=== PATIENT | male | born 1985 | race Caucasian/White ===

== ENCOUNTER 2019-04-02 21:35 | Emergency (ER) | payer BC, OTHER ==
[2019-04-02] MEDS ORDERED: cefTRIAXone VIAL(*) 250 MG VIAL IM ONE (22:20)
[2019-04-02] MEDS ORDERED: Lidocaine 1% MPF ** 5 ML VIAL IM ONE (22:20)
[2019-04-02] MEDS ORDERED: Azithromycin TAB* 250 MG PO ONE (22:22)
--- NOTE | 2019-04-02 22:34 | UC ---
Complaint Male HPI - HPI Summary HPI Summary: 33 year old male presents with penile discharge after unprotected sex within the past week. He states he was with two different partners. +dysuria no flank pain nor fever - History of Current Complaint Chief Complaint: UCGU Stated Complaint: COLD SXS Time Seen by Provider: 04/02/19 22:00 Hx Obtained From: Patient Onset/Duration: Sudden Onset - today Pain Intensity: 0 Location: Penis - discharge Character: Burning Aggravating Factor(s): Voiding Associated Signs And Symptoms: Positive: Negative Prior STD Hx: yes - Risk Factors Testicular Torsion: Negative - Allergies/Home Medications Allergies/Adverse Reactions: Allergies Allergy/AdvReac Type Severity Reaction Status Date / Time erythromycin base Allergy Unknown Verified 04/02/19 22:05 [From Pediazole] Reaction Details loratadine Allergy Unknown Verified 04/02/19 22:05 Reaction Details Penicillins Allergy Itching Verified 04/02/19 22:05 Sulfa (Sulfonamide Allergy Unknown Verified 04/02/19 22:05 Antibiotics) Reaction Details sulfisoxazole Allergy Unknown Verified 04/02/19 22:05 [From Pediazole] Reaction Details CITROCEL Allergy Unknown Unknown Uncoded 07/01/12 22:22 Reaction Details PMH/Surg Hx/FS Hx/Imm Hx Previously Healthy: Yes - Surgical History Surgical History: Yes Surgery Procedure, Year, and Place: LEFT KNEE ACL,MCL,MINISCUS.SST FUSIONS LEFT AND RIGHT WRIST - Family History Known Family History: Positive: Non-Contributory - Social History Alcohol Use: None Substance Use Type: None Smoking Status (MU): Never Smoked Tobacco Review of Systems All Other Systems Reviewed And Are Negative: Yes Constitutional: Positive: Negative Skin: Positive: Negative Eyes: Positive: Negative ENT: Positive: Negative Respiratory: Positive: Negative Cardiovascular: Positive: Negative Gastrointestinal: Positive: Negative Genitourinary: Positive: Dysuria, Other - penile discharge Neurovascular: Positive: Negative Musculoskeletal: Positive: Negative Neurological: Positive: Negative Psychological: Positive: Negative Is Patient Immunocompromised?: No Physical Exam Triage Information Reviewed: Yes Appearance: Well-Appearing Vital Signs: Initial Vital Signs Temp 97.4 F 04/02/19 21:53 Pulse 56 04/02/19 21:53 Resp 16 04/02/19 21:53 BP 125/77 04/02/19 21:53 Pulse Ox 100 08/02/19 21:53 Vital Signs Reviewed: Yes Eye Exam: Normal Eyes: Positive: Conjunctiva Clear ENT: Positive: Normal ENT inspection Neck: Positive: Supple, Nontender, No Lymphadenopathy Respiratory: Positive: Lungs clear Cardiovascular: Positive: RRR, No Murmur Abdomen Description: Positive: Nontender, Soft Male Genital Exam: Positive: Urethral Discharge - purulent. Negative: Lesions Musculoskeletal Exam: Normal Neurological Exam: Normal Skin Exam: Normal Complaint Male Course/Dx - Course Course Of Treatment: States he has tolerated rocephin and azithromycin in the past when treated. Rocephin 250mg IM and azithromycin 1000mg po given once here at Urgent Care. - Differential Dx/Diagnosis Provider Diagnosis: Sexually transmitted disease (STD) Discharge - Sign-Out/Discharge Documenting (check all that apply): Patient Departure All imaging exams completed and their final reports reviewed: No Studies - Discharge Plan Condition: Stable Disposition: HOME Patient Education Materials: Sexually Transmitted Diseases (ED) Referrals: No Primary Care Phys,NOPCP [Primary Care Provider] - Additional Instructions: It is important to notify all your sexual partners that you are being treated for a sexually transmitted disease. No sex for at least one week after treatment. Condom use and safe sexual practices are strongly recommended. - Billing Disposition and Condition Condition: STABLE Disposition: Home
[2019-04-05 14:07] LABS: Neisseria gonorrhoeae (GC) RNA Positive (Negative)
== END 2019-04-02 22:53 | disposition home or self-care (01) ==
LOC: UCCORT 21:35
DX: A64 Unspecified sexually transmitted disease (principal); Z88.0 Allergy status to penicillin; Z88.1 Allergy status to other antibiotic agents
CPT/HCPCS: 87491; 87591; 96372; 99202; A9270-GY; G0463; J0696